=== PATIENT | female | born 1970 | race Caucasian/White ===

== ENCOUNTER 2016-10-22 12:24 | Day surgery (SDC) | payer MEDICAID ==
[~2016-10-22] VITALS: Ht 160 cm; Wt 85.9 kg
--- NOTE | ~2016-10-22 | OP ---
PATIENT NAME: ARACELI FELTON MEDICAL RECORD: [id number] :72 LOCATION:[facility] ADMISSION DATE: SURGEON: MANUEL GRAHAM DO DATE OF OPERATION: 10/22/2016 PROCEDURE: EGD. INDICATIONS: Dysphagia, epigastric abdominal pain, and heartburn. SCOPE: Olympus video gastroscope. MEDICATIONS: Propofol 200 mg IV per anesthesia. ESTIMATED BLOOD LOSS: None. COMPLICATIONS: None. FINDINGS: Informed consent was given. The patient was made comfortable with the above medications. After reaching an adequate level of sedation by slow IV push, the patient was placed on her left side. The endoscope was then advanced under direct visualization through the mouth to the second portion of the duodenum. The patient did not tolerate the procedure well and she has significant amount of secretions, which causes her to cough throughout the entire procedure. For this reason, the procedure was quick and difficult to adequately visualize all areas on this study. From what could be seen, the upper, middle, and distal thirds of the esophagus appeared normal. There was some mild, LA class A reflux induced esophagitis at the GE junction. When the scope was passed through the GE junction, it was evident that there was a large hiatal hernia present. It could be visualized sliding through the diaphragm. The scope was advanced with difficulty down the antrum and through the pylorus to the duodenum, where the bulb and second portion of the duodenum appeared normal. No biopsies were taken on this examination. The scope was withdrawn from the patient due to her poor respiratory status and intolerance to the procedure. There were no complications during this examination. IMPRESSION: 1. Reflux esophagitis grade A. 2. Large hiatal hernia. PLAN AND RECOMMENDATIONS: 1. Discharge home when recovery parameters are met. 2. Continue current medications. 3. Add omeprazole 40 mg daily times 30 days due to symptoms and evidence of reflux. 4. Discontinue smoking. 5. Barium esophagram regarding the dysphagia. 6. No further endoscopies due to intolerance to the procedure and poor respiratory status. 7. If PPI therapy help, this can be continued indefinitely at 20 mg daily or as needed. 8. Referral to surgery for hiatal hernia repair could be considered, but the patient is a poor surgical candidate due to her lung function. TRANSINT:[id number] Voice Confirmation ID: [id number] DOCUMENT ID: [id number] OPERATIVE REPORT [id number] ARACELI FELTON NATHAN A DO CC: [id number] DICTATION DATE: 10/22/16 1658 LEAD SOFTWARE TESTER: 10/23/16 0139 [facility] 10/22/16 [address] [place] [address]
[2016-10-22 13:07] LABS: HEMATOCRIT 46.7 % (36.0-48.0); HEMOGLOBIN 15.7 g/dL (12-16); MCH 30.9 pg (26.0-34.0); MCHC 33.6 g/dL (31.0-37.0); MCV 91.9 fL (80.0-100.0); MEAN PLATELET VOLUME 10.5 fL (7.4-10.4); RBC 5.08 10x6/uL (4.00-5.40); RDW 13.2 % (11.5-14.5); WBC 10.7 10x3/uL (4.8-10.8)
[2016-10-22] MEDS ORDERED: LATUDA40 MG PO (14:40)
[2016-10-22] MEDS ORDERED: COMBIVENT RESPIM4 GM INH (14:40)
[2016-10-22] MEDS ORDERED: IPRAT-ALBUT 0.5-3 ML UPD (14:41)
[2016-10-22] MEDS ORDERED: ULTRAM50 MG PO (14:41)
[2016-10-22] MEDS ORDERED: IMITREX50 MG PO (14:41)
[2016-10-22] MEDS ORDERED: KLONOPIN1 MG PO (14:42)
[2016-10-22] MEDS ORDERED: ADVAIR 250/501 DISK INH (14:42)
[2016-10-22] MEDS ORDERED: ADDERALL XR 3030 MG PO (14:42)
[2016-10-22] MEDS ORDERED: REQUIP0.5 MG PO (14:42)
[2016-10-22] MEDS ORDERED: MELOXICAM TAB 15M (14:43)
[2016-10-22] MEDS ORDERED: SPIRIVA18 MCG INH (14:43)
[2016-10-22 14:53] VITALS: BP 90/49; Ht 160 cm; Wt 85.9 kg
== END 2016-10-22 18:10 | disposition home or self-care (01) ==
LOC: D.OPS 12:24
PROVIDERS: Anesthesiology
DX: K21.0 Gastro-esophageal reflux disease with esophagitis (principal); K44.9 Diaphragmatic hernia without obstruction or gangrene; R12 Heartburn

== ENCOUNTER 2016-11-10 05:40 | Inpatient (IN) | payer MEDICAID ==
[2016-11-07 10:35] LABS: HEMOGLOBIN 15.2 g/dL (12-16); MCH 31.4 pg (26.0-34.0); MCHC 33.8 g/dL (31.0-37.0); MEAN PLATELET VOLUME 10.4 fL (7.4-10.4); RBC 4.84 10x6/uL (4.00-5.40); RDW 13.3 % (11.5-14.5); WBC 10.9 10x3/uL (4.8-10.8)
[2016-11-07 10:44] LABS: ANION GAP 10.8 mmol/L (8-16); CALCIUM 9.6 mg/dL (8.5-10.1); CARBON DIOXIDE 29.7 mmol/L (21.0-32.0); CREATININE - SERUM 0.9 mg/dL (0.6-1.3); POTASSIUM - SERUM 3.5 mmol/L (3.5-5.1)
[~2016-11-10] VITALS: Ht 160 cm; Wt 78.6 kg
[2016-11-10] VITALS (9 sets, daily range): BP systolic 97–126; BP diastolic 48–77; BMI 30.7
[~2016-11-10 05:40] MED LIST: ADDERALL XR 3030 MG PO; ADVAIR 250/501 DISK INH; COMBIVENT RESPIM4 GM INH; IMITREX50 MG PO; IPRAT-ALBUT 0.5-3 ML UPD; KLONOPIN1 MG PO; LATUDA40 MG PO; MELOXICAM TAB 15M PO; REQUIP0.5 MG PO; SPIRIVA18 MCG INH; ULTRAM50 MG PO
[2016-11-10 08:51] LABS: HCG URINE NEGATIVE (NEGATIVE)
--- NOTE | 2016-11-10 19:00 | NUR ---
PATIENT IN BED WATCHING TV. HOB 45 DEGREES. AAOX4. RR EVEN AND UNLABORED. O2 @ 10L VIA OXYMIZER. LAP SITES X6 TO ABD. LINGEY SECURED WITH STATLOCK AND DRAINING TO GRAVITY. SCD'S ON. SRX2. BED LOW. CALL LIGHT WITHIN REACH.
[2016-11-11] VITALS: BP 97/55
[2016-11-11 04:00] VITALS: BP 97/52
[2016-11-11 06:15] LABS: BASOPHILS 0.1 % (0-2); EOSINOPHILS 0 % (0-7); HEMATOCRIT 40.4 % (36.0-48.0); HEMOGLOBIN 13.2 g/dL (12-16); IMMATURE GRANULOCYTES 0.4 % (0-5); LYMPHOCYTES 6.5 % (15-50); MCH 30.6 pg (26.0-34.0); MCHC 32.7 g/dL (31.0-37.0); MCV 93.7 fL (80.0-100.0); MEAN PLATELET VOLUME 10.7 fL (7.4-10.4); MONOCYTES 3.5 % (2-11); NEUTROPHILS 89.5 % (40-80); RBC 4.31 10x6/uL (4.00-5.40); RDW 13.5 % (11.5-14.5); WBC 17.1 10x3/uL (4.8-10.8)
--- NOTE | 2016-11-11 06:24 | OP ---
PATIENT NAME: ISAC FELTON MEDICAL RECORD: [id number] :72 LOCATION:[id number] ADMISSION DATE:11/10/16 SURGEON: GREY SANTOYO MD DATE OF OPERATION: 11/10/2016 SURGEON: Grey Santoyo MD. PREOPERATIVE DIAGNOSES: 1. Gastroesophageal reflux disease with esophagitis. 2. Hiatal hernia. 3. Chronic obstructive pulmonary disease. 4. Obstructive sleep apnea. 5. Nicotine dependence. 6. Dysphagia. 7. Dependence on supplemental oxygen. POSTOPERATIVE DIAGNOSES: 1. Gastroesophageal reflux disease with esophagitis 2. Hiatal hernia. 3. Chronic obstructive pulmonary disease. 4. Obstructive sleep apnea. 5. Nicotine dependence. 6. Dysphagia. 7. Dependence on supplemental oxygen. SURGEON: Grey Santoyo MD. UNSTACKER SURGEON: Emmanuel German MD. PROCEDURES: 1. Laparoscopic hiatal hernia repair. 2. Laparoscopic Vika fundoplication. ANESTHESIA: General. COMPLICATIONS: None. SPECIMENS: None. Case was clean. ESTIMATED BLOOD LOSS: 40 cc. OPERATIVE COURSE: After consent was obtained, the patient was taken to the operating room and placed in the supine position on the operating table. Next, general anesthesia was given via endotracheal intubation after a timeout was performed that confirmed correct patient and procedure. The abdomen was then prepped and draped in typical sterile fashion. Local anesthetic was injected just above the umbilicus. Using a 10-mm bladeless optical trocar, the abdomen was entered under direct laparoscopic vision. Adequate pneumoperitoneum was achieved. The abdominal cavity was inspected, no evidence of bowel injury and no evidence of bleeding. The patient was placed in the steep reverse Trendelenburg position. At this time, all remaining trocars were placed, two 5-mm trocars in the right lower quadrant, 12 mm and 5-mm trocar in the left lateral quadrant, Marine liver retractor in the subxiphoid position. The OPERATIVE REPORT [id number] ISAC FELTON left lobe of the liver was elevated with the Marine Liver Retractor exposing the gastroesophageal junction. There was a hiatal hernia noted in the stomach. The upper portion of the stomach was within the mediastinum. Dissection continued laterally on the greater curve. The upper third of the stomach was mobilized, the short gastrics were taken along the upper third of the stomach and the cardia, all the way to the level of the left diaphragmatic crura. The left diaphragmatic crura was skeletonized. This all was performed with the Harmonic scalpel. Next, the gastrohepatic ligament was opened with Harmonic scalpel. Dissection continued to the level of the right crura. The right crura was skeletonized. Dissection continued posteriorly until the left previously dissected left crura was identified. Next, dissection continued anteriorly completing the circumferential dissection of the diaphragmatic hiatus as well as dissection and removal of the hernia sac. The mediastinum was dissected until approximately 4-6 cm of intraabdominal esophagus was obtained. The Jagruti was applied to the mediastinum. The diaphragmatic hernia was closed with 2-0 polypropylene Stratafix in a running continuous fashion. Next, a floppy Vika was created. The cardia of the stomach was passed posterior to the GE junction using a 3-0 spiral PDS. A loose floppy Vika was performed. At the end of the case, the abdomen was copiously irrigated and suctioned. Careful attention was paid to hemostasis. There was no evidence of bowel injury. No evidence of bleeding. At this time, the Marine liver retractor was removed. All remaining instruments were removed. The abdomen was desufflated. Trocars were removed. Skin was closed with 4-0 Monocryl, Mastisol and Steri-Strips. At the end the case, all needle and instrument counts were correct. No complications occurred. The patient was extubated and transferred to the PACU in stable condition. TRANSINT:[id number] Voice Confirmation ID: [id number] DOCUMENT ID: [id number] GREY SANTOYO MD at 0624 CC: [id number] DICTATION DATE: 11/10/16 1337 DOUGH MIXER: 11/10/16 1709 ADM [id number] [place] [address]
[2016-11-11 06:44] LABS: ANION GAP 13.8 mmol/L (8-16); CALCIUM 8.8 mg/dL (8.5-10.1); CARBON DIOXIDE 25.3 mmol/L (21.0-32.0); MAGNESIUM - SERUM 1.6 mg/dL (1.8-2.4); POTASSIUM - SERUM 4.1 mmol/L (3.5-5.1)
[2016-11-11 06:55] LABS: PLATELET COUNT 238 10x3/uL (130-400)
--- NOTE | 2016-11-11 07:05 | NUR ---
PT REC'D FROM [facility]. RESTING IN BED WATCHING TV. AAOX4. NO CURRENT COMPLAINTS OF PAIN. X6 LAP SITES TO ABD FREE OF REDNESS AND SWELLING. CDI. TRUJILLO CATHETER DRAINING CLEAR YELLOW URINE TO GRAVITY. PT TAKEN TO HAVE GASTROGRAFFIN TEST DONE. ESCORTED OUT VIA WC.
[2016-11-11 07:12] VITALS: Ht 160 cm; Wt 78.6 kg
[2016-11-11 08:34] VITALS: BP 103/47
[2016-11-11] MEDS ORDERED: HYDROCODON-ACE1 EAC7 PO (09:07)
[2016-11-11] MEDS ORDERED: ZOFRAN ODT4 MG/UDTAB PO (09:09)
--- NOTE | 2016-11-11 11:00 | NUR ---
PATIENT UP IN ROOM AT THIS TIME WITH NO PROBLEMS. IV INTACT. NO COMPLAINTS. CALL LIGHT WITHIN REACH.
--- NOTE | 2016-11-11 12:08 | NUR ---
DC INSTRUCTIONS REVIEWED WITH PT AT THIS TIME. NO QUESTIONS OR CONCERNS VOICED. IV TO R HAND DC'D WITH CATHETER INTACT. TRUJILLO CATHETER DC'D WITH BALLOON INTACT WELL. F/U APPOINTMENTS DISCUSSED. ESCORTED OUT VIA WC BY VOLUNTEER.
== END 2016-11-11 12:09 | disposition home or self-care (01) | DRG 327 ==
LOC: D.SDCHOLD 05:40 → D.MS 05:40 → D.OPS 07:30 → EDSTATUS 07:30 → D.SDCHOLD 07:30 → D.PAN 07:30 → D.SDCHOLD 08:45 → D.MS 14:05
PROVIDERS: Anesthesiology; ADMIT Surgery
PROC: 0BQR4ZZ (ICD-10-PCS; 2016-11-10)
PROC: 0DV44ZZ Restriction of Esophagogastric Junction, Percutaneous Endoscopic Approach (ICD-10-PCS; principal; 2016-11-10 08:45)
PROC: 0BQS4ZZ (ICD-10-PCS; 2016-11-10 08:45)
DX: K21.0 Gastro-esophageal reflux disease with esophagitis (principal); F17.203 Nicotine dependence unspecified, with withdrawal; K44.9 Diaphragmatic hernia without obstruction or gangrene; J44.9 Chronic obstructive pulmonary disease, unspecified; G47.33 Obstructive sleep apnea (adult) (pediatric); R13.10 Dysphagia, unspecified; Z99.81 Dependence on supplemental oxygen

== ENCOUNTER → 2016-12-04 07:47 | Outpatient (CLI) | payer MEDICAID ==
[2016-11-11 07:12] VITALS: BMI 30.7
[~2016-12-04 07:47] MED LIST changes: +HYDROCODON-ACE1 EAC7 PO; +ZOFRAN ODT4 MG/UDTAB PO
[2016-12-04 08:19] LABS: BASOPHILS 0.2 % (0-2); EOSINOPHILS 0 % (0-7); HEMATOCRIT 43.9 % (36.0-48.0); HEMOGLOBIN 14.6 g/dL (12-16); IMMATURE GRANULOCYTES 0.5 % (0-5); LYMPHOCYTES 18.6 % (15-50); MCH 30.9 pg (26.0-34.0); MCHC 33.3 g/dL (31.0-37.0); MONOCYTES 5.8 % (2-11); NEUTROPHILS 74.9 % (40-80); PLATELET COUNT 249 10x3/uL (130-400); RBC 4.72 10x6/uL (4.00-5.40); RDW 13.5 % (11.5-14.5); WBC 10.7 10x3/uL (4.8-10.8)
[2016-12-04 08:44] LABS: ANION GAP 12.1 mmol/L (8-16); CARBON DIOXIDE 27.8 mmol/L (21.0-32.0); CREATININE - SERUM 0.9 mg/dL (0.6-1.3); POTASSIUM - SERUM 3.9 mmol/L (3.5-5.1)
== END | disposition home or self-care (01) ==
LOC: D.LAB 07:47 → D.RAD 09:30
PROVIDERS: Surgery
DX: R10.9 Unspecified abdominal pain (principal); R11.10 Vomiting, unspecified

== ENCOUNTER → 2018-06-15 07:45 | Outpatient (CLI) | payer MEDICAID ==
[2016-11-11 07:12] VITALS: BMI 30.7
--- NOTE | 2018-06-18 12:11 | ST ---
PATIENT:ISAC FELTON MEDICAL RECORD: [id number] SEX: F LOCATION:[facility] ORDER #: ADMISSION DATE: 06/15/18 AGE OF PATIENT: 48 REFERRING PHYSICIAN: INTERPRETING PHYSICIAN: FELIICANO ZIMMER MD DATE OF SERVICE: 06/15/2018 PROCEDURE: Nuclear Stress Test. INDICATION: Chest discomfort, angina, hypertension, family history of coronary artery disease. She was exercised on standard Lexiscan protocol with 30 mCi of sestamibi injected at peak stress, 11 mCi were used previously for rest images. FINDINGS: Gated SPECT reveals a mildly depressed ejection fraction at 47%. SPECT IMAGING: Cardiolite was used as myocardial perfusion agent. There is reversibility inferiorly and apically. This includes the basal, mid, apical segments as well as the apex itself. The degree of reversibility is mild. The amount of myocardium involved is moderate. OVERALL IMPRESSION: 1. This is an abnormal nuclear stress test, moderate amount of myocardium showing reversibility inferoapically. 2. Gated SPECT reveals a mildly depressed ejection fraction of 47%. In this patient with ongoing symptomatology, the current scan does suggest the presence of hemodynamically significant coronary artery disease. We will proceed with coronary angiography as followup study. TRANSINT:[id number] Voice Confirmation ID: [id number] DOCUMENT ID: [id number] FELICIANO ZIMMER MD at 1211 CC: [id number] DICTATION DATE: 06/16/18 1152 ADMINISTRATIVE VOLUNTEER: 06/17/18 0803 DEP CLI 06/15/[address] [address]
== END | disposition home or self-care (01) ==
LOC: D.HCCARDIO 07:45
DX: I20.9 Angina pectoris, unspecified (principal)

== ENCOUNTER 2018-06-28 10:42 | Outpatient (CLI) | payer MEDICAID ==
[~2018-06-28] VITALS: Ht 160 cm; Wt 92.7 kg
--- NOTE | ~2018-06-28 | HEMODYNAMI ---
PATIENT:ISAC FELTON MEDICAL RECORD: [id number] : 72 LOCATION:[place] ADMISSION DATE: 06/28/18 Generatedon:06/28/201813:27 Patient name: ISAC FELTON Patient #: [id number] SSN: B: 1970 Date of study: 06/28/2018 Page: Of Hemodynamic Procedure Report Patient Data Patient Demographics Procedure consent was obtained First Name: ISAC Gender: Female Last Name: JOSE FRANCISCO : 1970 Middle Initial: RILEY Age: 48 year(s) Patient #: [id number] Race: Unknown Additional ID: [id number] Contact details Address: [address] [address] State: [place] City: [place] Zip code: [address] Past Medical History Allergies Allergen Reaction Date Comments Reported Bactrim 06/28/2018 Admission Admission Data Admission Date: 06/28/2018 Admission Time: 10:42 Height (in.): 63 BSA: 1.95 (m2) Height (cm.): 160.02 BMI: 35.96 (kg/m2) Weight (lbs.): 203 Weight (kg.): 92.08 Lab Results Lab Result Date: 06/28/2018 Lab Result Time: 0:00 Biochemistry Name Units Result Min Max BUN mg/dl 8 --(*---)-- 7 18 Creatinine mg/dl 0.7 --(*---)-- 0.6 1.3 CBC Name Units Result Min Max Hemoglobin g/dl 17.9 --(----)*- 13.5 17.5 Procedure Procedure Types Cath Procedure Diagnostic Procedure C [facility] w/Coronaries Sedation Charges Moderate Sedation up to 15 minutes Procedure Description Procedure Date Procedure Date: 06/28/2018 Procedure Start Time: 13:06 Procedure End Time: 13:22 Procedure Staff Name Function Tal Castro MD Performing Physician Karlie Marie RT Monitor Yesenia Marquez RT Scrub Burt Purdy RT Scrub Krystyna Esquivel RN Nurse Procedure Data Cath Procedure Fluoroscopy Diagnostic fluoroscopy Total fluoroscopy Time: 1.4 time: 1.4 min min Diagnostic fluoroscopy Total fluoroscopy dose: 303 dose: 303 mGy mGy Contrast Material Contrast Material Type Amount (ml) Isovue 300 59 Entry Location Entry Primary Successful Side Size Upsize Upsize Entry Closure Succes sful Closure Location (Fr) 1 (Fr) 2 (Fr) Remarks Device Remarks Femoral Right 5 Fr Exoseal artery Estimated blood loss: 5 ml Diagnostic catheters Device Type Used For End Catheter Placement MULTIPACK JL 4.0 5Fr Procedure catheter MULTIPACK 3DRC 5Fr Procedure catheter MULTIPACK Pigtail 5 Fr Procedure catheter Procedure Complications No complications Procedure Medications Medication Administration Route Dosage 0.9% NaCl I.V. 100 ml/hr Oxygen etCO2 Nasal cannula 2 l/min Lidocaine 2% added to field 20 Heparin Flush Bag added to field 2 bags (1000units/500ml NS) Versed I.V. 2 mg Fentanyl I.V. 50 mcg Versed I.V. 2 mg Fentanyl I.V. 50 mcg Versed I.V. 2 mg Fentanyl I.V. 50 mcg Hemodynamics Rest BSA: 1.95 (m2) HGB: 17.9 (g/dl) O2 Consumption: Estimated: 197.57 (ml/min) O2 Co nsumption indexed: Estimated:101.32 (ml/min/m) Heart Rate: 76 (bpm) Pressure Samples Time Site Value (mmHg) Purpose Heart Use Rate(bpm) 13:18 LV 114/7,12 Snapshot 77 13:19 AO 125/62(94) Pullback 84 13:19 LV 127/15,37 Pullback 84 Gradients Valve Time Site 1 Site 2 Mean SEP/DFP Peak To Heart Use (mmHg) (sec/min) Peak Rate (mmHg) (bpm) Aortic 13:19 LV AO 22 19 2 84 127/15,37 125/62(94) Calculations Valve P-P Mean Valve Index Valve Source Name Gradient Area Flow (cm2) Aortic 2 22 2 22 Snapshots Pre Cath Intra NCS Post Cath Vital Signs Time Heart Resp SPO2 etCO2 NIBP (mmHg) Rhythm Pain Sedation Rate (ipm) (%) (mmHg) Status Level (bpm) 12:40:09 86 20 96 34 133/70(103) NSR 0 (11) 10(A) , No pain 12:44:30 77 20 97 39 130/75(114) NSR 0 (11) 10(A) , No pain 12:48:41 77 26 98 34.2 118/79(99) NSR 0 (11) 10(A) , No pain 12:52:57 80 36 97 33.5 118/71(91) NSR 0 (11) 10(A) , No pain 12:57:09 83 30 97 32 109/75(97) NSR 0 (11) 10(A) , No pain 13:01:13 87 15 98 34.9 108/72(94) NSR 0 (11) 10(A) , No pain 13:05:25 86 21 97 26 111/72(91) NSR 0 (11) 10(A) , No pain 13:09:37 87 21 98 31.2 114/75(91) NSR 0 (11) 10(A) , No pain 13:13:49 85 30 98 30.4 110/80(98) NSR 0 (11) 9(A) , No pain 13:18:01 86 32 96 29.7 117/77(98) NSR 0 (11) 9(A) , No pain 13:22:13 86 30 96 30.5 121/80(99) NSR 0 (11) 10(A) , No pain Medications Time Medication Route Dose Verified Delivered Reason Notes Eff ectiveness by by 12:39:18 0.9% NaCl I.V. 100 Tal Krystyna used for ml/hr Gloria Alvin procedure MD GONZALEZ 12:39:24 Oxygen etCO2 2 Tal Krystyna used for [facility]al l[facility] MD GOZNALEZ 12:39:38 Lidocaine 2% added 20ml Tal Parada for local to vial [facility] anesthetic field MD MARQUEZ 12:39:42 Heparin Flush added 2 Tal Tal [facility] ([facility]500[facility] field MD MARQUEZ NS) 13:00:13 Versed I.V. 2 mg Tal Krystyna for Gloria Alvin sedation MD GONZALEZ 13:00:18 Fentanyl I.V. 50 Tal Krystyna for mcg [place] Alvin sedation MD GONZALEZ 13:05:17 Versed I.V. 2 mg Tal Krystyna for GloriaHans Esquivel sedation MD GONZALEZ 13:05:26 Fentanyl I.V. 50 Tal Krystyna for mcg Gloria Alvin sedation MD GONZALEZ 13:12:33 Versed I.V. 2 mg Tal [place] sedation MD GONZALEZ 13:12:38 Fentanyl I.V. 50 Tal eisenberg [facility] Hans Esquivel sedation MD GONZALEZspice mixer Log Time Note 12:23:45 Signed procedure consent form obtained from patient. 12:23:50 Diagnostic Cath status Elective 12:23:54 Krystyna Esquivel RN sent for patient. Start room use. 12:24:42 Patient Height : 63 inches 12:24:51 Patient Weight : 203 lbs 12:25:00 H&P Date Dictated: 06/07/2018 Within 30 days and on chart., H&P Addendum completed by physician on day of procedure. (MUST COMPLETE FOR ALL OUTPATIENTS). 12:25:06 Patient allergic to Bactrim 12:35:17 Patient received from Pre/Post Procedure Room to CCL 1 Alert and oriented. Tansferred to table in Supine position. 12:35:18 Warm blankets applied, and mckenzie hugger turned on for patient comfort. 12:35:18 Correct patient and procedure confirmed by team. 12:35:19 ECG and BP/O2 sat monitors applied to patient. 12:38:53 Vital chart was started 12:39:18 0.9% NaCl 100 ml/hr I.V. was administered by Krystyna Esquivel RN; used for procedure; 12:39:24 Oxygen 2 l/min etCO2 Nasal cannula was administered by Krystyna Esquivel RN; used for procedure; 12:39:38 Lidocaine 2% 20ml vial added to field was administered by Tal Castro MD; for local anesthetic; 12:39:42 Heparin Flush Bag (1000units/500ml NS) 2 bags added to field was administered by Tal Castro MD; used for procedure; 12:41:46 Baseline sample Acquired. 12:41:52 Rhythm: sinus rhythm 12:41:54 Pre-procedure instructions explained to patient. 12:41:55 Pre-op teaching completed and patient verbalized understanding. 12:41:57 Family in waiting room. 12:41:58 Patient NPO since Midnight. 12:42:00 Is the patient allergic to Iodine/contrast media? No. 12:42:01 Was the patient premedicated? No 12:46:16 Full Disclosure recording started 12:46:21 Is patient on blood thinner?No 12:46:25 Patient diabetic? No. 12:46:28 Patient not . Patient has had tubal. 12:46:30 Previous problem with sedation/anesthesia? No ? 12:46:31 Snore? Yes 12:46:32 Sleep apnea? Yes 12:46:33 Deviated septum? No 12:46:33 Opens mouth fully? Yes 12:46:34 Sticks out tongue? Yes 12:46:37 Airway obstruction? Yes COPD 12:46:40 Dentures? No ? 12:46:41 Modified Abhishek's test Ulnar < 7 seconds 12:46:44 Patient pain scale 0/10 ?. 12:46:50 IV patent on arrival in left hand with 0.9% NaCl at [facility]. 12:47:15 Lab Result : Creatinine 0.7 mg/dl 12:47:15 Lab Result : BUN 8 mg/dl 12:47:15 Lab Result : Hemoglobin 17.9 g/dl 12:47:21 Lab results completed and on chart. 12:47:26 Right Radial & Right Groin area was prepped with chlora-prep and draped in sterile fashion 12:47:27 Alarms reviewed by R. N. 12:47:27 Sharps counted by scrub and verified by R.N. 12:47:30 Use device set Radial Dx or PCI 12:47:31 ACIST Syringe (30058) opened to sterile field. 12:47:32 Medline Cath Pack ([id number]) opened to sterile field. 12:47:33 Bag Decanter (2002) opened to sterile field. 12:47:35 ACIST Hand Control (80312) opened to sterile field. 12:47:35 ACIST Manifold (68183) opened to sterile field. 12:47:36 Tegaderm 4 x 4 (1626W) opened to sterile field. 12:47:37 DIAGNOSTIC WIRE .035 260cm J wire (034619) opened to sterile field. 12:47:38 MBrace Wrist Support ([id number]) opened to sterile field. 12:47:39 SHEATH 6FR Slender (91-2686) opened to sterile field. 12:59:22 --------ALL STOP TIME OUT------ 12:59:22 Final Timeout: patient, procedure, and site verified with staff and physician. All members of the team are in agreement. 12:59:24 Right Radial & Right Groin site verified by team. 12:59:31 Fire Safety Assessment: A--An alcohol-based skin anteseptic being used preoperatively., C--Open oxygen or nitrous oxide is being used., D--An ESU, laser, or fiber-optic light is being used. 12:59:34 Physical assessment completed. ASA score P 2 - A patient with mild systemic disease as per Tal Castro MD. 12:59:37 Sedation plan: IV Moderate Sedation Medication:Versed, Fentanyl 12:59:40 Zero performed for pressure channel P1 13:00:13 Versed 2 mg I.V. was administered by Krystyna Esquivel RN; for sedation; 13:00:18 Fentanyl 50 mcg I.V. was administered by Krystyna Esquivel RN; for sedation; 13:05:17 Versed 2 mg I.V. was administered by Krystyna Esquivel RN; for sedation; 13:05:26 Fentanyl 50 mcg I.V. was administered by Krystyna Esquivel RN; for sedation; 13:05:54 Procedure started. 13:06:22 Local anesthetic to right radial artery with Lidocaine 2% by Tal Castro MD.INITIAL ACCESS ONLY 13:10:56 NO RADIAL CANNULATION. WILL GO FEMORAL 13:11:28 SHEATH 5FR [place] ([id number]) opened to sterile field. 13:11:47 Use device set Multipack Set 13:11:49 DIAGNOSTIC Multipack 5Fr catheter set ([id number]) opened to sterile field. 13:12:01 Local anesthetic to left femerol artery with Lidocaine 2% by Tal Castro MD.ADDITIONAL ACCESS 13:12:33 Versed 2 mg I.V. was administered by Krystyna Esquivel RN; for sedation; 13:12:38 Fentanyl 50 mcg I.V. was administered by Krystyna Esquivel RN; for sedation; 13:12:52 A 5 Fr sheath was inserted into the Right Femoral artery 13:13:01 A MULTIPACK JL 4.0 5Fr catheter was advanced over the wire and used for Procedure. 13:15:16 LCA angiography performed. 13:15:38 Catheter removed. 13:15:59 A MULTIPACK 3DRC 5Fr catheter was advanced over the wire and used for Procedure. 13:17:02 RCA angiography performed. 13:17:03 Catheter removed. 13:17:12 A MULTIPACK Pigtail 5 Fr catheter was advanced over the wire and used for Procedure. 13:18:23 LV gram done using FELDER 13:18:30 Injector settings: Ml/sec: 7, Volume: 15, 13:18:51 LV hemodynamics recorded. 13:19:17 EF : 55 % 13:19:19 Catheter removed. 13:19:53 EXOSEAL 5Fr (EX500) opened to sterile field. 13:20:15 Sheath removed intact; hemostasis achieved with Exoseal to the Right Femoral artery. 13:20:18 Procedure ended.(Physican Out) 13:20:34 Fluoroscopy time 01.40 minutes. 13:20:38 Fluoroscopy dose: 303 mGy 13:20:38 Flurop Dose total: 303 13:20:43 Contrast amount:Isovue 300 59ml. 13:20:44 Sharps counted by scrub and verified by R.N. 13:21:01 Post-op/insertion site Right Femoral artery dressed using a 4 x 4 and Tegaderm. 13:21:05 Post-procedure physical assessment completed. ASA score P 2 - A patient with mild systemic disease as per Tal Castro MD. 13:21:16 Post procedure rhythm: sinus rhythm 13:21:19 Estimated blood loss: 5 ml 13:21:23 Post procedure instruction explained to patient.Patient verbalizes understanding. 13:21:23 Patient needs reinforcement of post procedure teaching. 13:21:51 Procedure type changed to Cath procedure, Diagnostic procedure, LHC, LHC w/Coronaries, Sedation Charges, Moderate Sedation up to 15 minutes 13:22:17 Procedure and supply charges have been captured, reviewed, submitted and are correct. 13:22:19 Procedure Complication : No complications 13:22:21 Vital chart was stopped 13:22:21 See physician's report for complete and final results. 13:22:23 Report given to Pre/Post Procedure Room. 13:22:25 Patient transfered to Pre/Post Procedure Room with Wheelchair. 13:22:27 Procedure ended. 13:22:27 Full Disclosure recording stopped 13:22:30 End room use (Document Last) Device Usage Item Name Manufacture Quantity Catalog Hospital Part Current Minimal Lot# / Number Charge Number Stock Stock Serial# Code ACIST Acist 1 08267 [id number] 428087 301328 20 Syringe Medical (48359) Systems Inc Medline Medline 1 [id number] 832600 33439 896974 5 Cath Pack ([id number]) Bag Microtek 1 2001S 435030 00734 615240 5 Decanter Medical Inc. () ACIST Hand Acist 1 77508 271517 505039 496184 5 Control Medical (83252) Systems Inc ACIST Acist 1 73738 246544 632042 482121 5 Manifold Medical (80924) Systems Inc Tegaderm 4 3M 1 1626W 753745 769069 541348 5 x 4 (1626W) DIAGNOSTIC St Aden 1 518063 075472 146785 584345 30 WIRE .035 260cm J wire (824768) MBrace Advanced 1 140-0250-00 127708 19568 090145 5 Wrist Vascular Support Dynamics ([id number]) SHEATH 6FR Terumo 1 [id number] 200530 616385 963250 5 Slender (80-1060) SHEATH 5FR Terumo 1 [id number] 899064 633640 231561 5 [place] (MNX282) DIAGNOSTIC Cardinal 1 [id number] 484441 59307 423174 30 Multipack Health 5Fr catheter set (NV2412) MULTIPACK Cardinal 1 064888 5 JL 4.0 5Fr Health catheter MULTIPACK Cardinal 1 337962 5 3DRC 5Fr Health catheter MULTIPACK Cardinal 1 755998 5 Pigtail 5 Health Fr catheter EXOSEAL 5Fr Cardinal 1 EX500 796686 411872 467237 10 (EX500) Health Signature Audit [place] Stage Time Signature Unsigned Intra-Procedure 06/28/2018 Karlie Marie 1:27:11 PM RT(R) Signatures Monitor : Karlie Marie Signature : RT Date : Time : [facility] [address] [place] [address]
[2018-06-28] MEDS ORDERED: KLONOPIN1 MG PO (10:59)
[2018-06-28] MEDS ORDERED: REQUIP0.5 MG PO (11:01)
[2018-06-28] MEDS ORDERED: LUNESTA2 M1 PO (11:02)
[2018-06-28] MEDS ORDERED: VOLTAREN75 MG PO (11:02)
[2018-06-28] MEDS ORDERED: OMEPRAZOLE20 M1 PO (11:02)
[2018-06-28 11:11] VITALS: BP 115/67; Ht 160 cm; Wt 92.7 kg
[2018-06-28 11:25] LABS: BASOPHILS 0.2 % (0-2); EOSINOPHILS 0.6 % (0-7); HEMATOCRIT 43.6 % (36.0-48.0); HEMOGLOBIN 14.9 g/dL (12-16); IMMATURE GRANULOCYTES 0.4 % (0-5); LYMPHOCYTES 22.3 % (15-50); MCH 30.6 pg (26.0-34.0); MCHC 34.2 g/dL (31.0-37.0); MCV 89.5 fL (80.0-100.0); NEUTROPHILS 73.5 % (40-80); PLATELET COUNT 238 10x3/uL (130-400); RBC 4.87 10x6/uL (4.00-5.40); RDW 13.4 % (11.5-14.5); WBC 11.3 10x3/uL (4.8-10.8)
[2018-06-28 11:34] LABS: CALC OSMOLALITY 273 mosm/kg (275-300); CALCIUM 8.9 mg/dL (8.5-10.1); CARBON DIOXIDE 22.8 mmol/L (21.0-32.0); CHLORIDE - SERUM 105 mmol/L (98-107); CREATININE - SERUM 0.7 mg/dL (0.6-1.3); GLUCOSE 93 mg/dL (74-106); POTASSIUM - SERUM 4.7 mmol/L (3.5-5.1); SODIUM 138 mmol/L (136-145); UREA NITROGEN 8 mg/dL (7-18); eGFR NON AFRICAN AMERICAN > 90 mL/min (90-120)
--- NOTE | 2018-06-28 13:45 | NUR ---
1335 RECEIVED PT FROM FORESTRY LABORER. PT IS DROWSY BUT AWAKENS EASILY. DENIES ANY C/O PAIN OR NAUSEA. 5 FR EXOSEAL IS CDI TO RIGHT GROIN, AREA IS SOFT AND NONTENDER. PEDAL PULSES PALPABLE, HOB IS FLAT, CALL LIGHT IN REACH, NO FAMILY AT BEDSIDE. 1345 NO BLEEDING OR HEMATOMA NOTED AT RIGHT GROIN DRESSING SITE. PEDAL PULSES PALPABLE. PT WITH OCCASIONAL COUGH, INSTRUCTED HER TO HOLD PRESSURE TO CATH SITE WHEN SHE FEELS A COUGH COMING ON AND PT VERBALIZES UNDERSTANDING. SHE STATES A 'SMOKER'S COUGH'. SODA SERVED PER PT REQUEST. AT BEDSIDE. CALL LIGHT IN REACH. NSR, RATE IS 76.
--- NOTE | 2018-06-28 14:04 | NUR ---
PT ANA PO PO FLUIDS WITH NO C/O NAUSEA. DRESSING CDI, PULSES PALPABLE. VSS.
--- NOTE | 2018-06-28 14:32 | NUR ---
PT ALERT AND DENIES ANY C/O. DR CHAU HAS ROUNDED ON PT. PT HAS ANA PO FLUIDS WITH NO C/O. NAUSEA. BP IS 110/66, HR IS 76. DRESSING TO RIGHT GROIN IS CDI, PULSES PALPABLE. HOB IS FLAT, FRIEND AT BEDSIDE.
--- NOTE | 2018-06-28 14:50 | NUR ---
DRESSING REMAINS CDI TO RIGHT GROIN, AREA IS SOFT AND NONTENDER. PEDAL PULSES PALPABLE. PT IS ALERT AND DENIES ANY C/O. VSS. HOB ELEVATED AND SANDWICH SERVED.
--- NOTE | 2018-06-28 15:15 | NUR ---
DRESSING REMAINS CDI TO RIGHT GROIN, AERA IS SOFT AND NONTENDER. PEDAL PULSES PALPABLE. PT IS ALERT AND DENIES ANY C/O. VSS. DC INSTRUCTIONS REVIEWED WITH PT AND FRIEND WHO VERBALIZE UNDERSTANDING.
--- NOTE | 2018-06-28 15:28 | NUR ---
IV DC'D WITH CATH INTACT. DRESSING REMAINS CDI, PEDAL PULSES PALPABLE. PT IS ALERT AND DENIES ANY C/O. PT DRESSING FOR DC WITH ASSIST.
--- NOTE | 2018-06-28 15:41 | NUR ---
PT HAS AMBULTED TO THE BATHROOM AND VOIDED QS. IS ALERT AND DENIES ANY C/O. PT ESCORTED TO PRIVATE AUTO VIA WC BY NURSE WITH FRIEND DRIVING HER HOME.
--- NOTE | 2018-07-01 09:01 | OP ---
PATIENT NAME: ISAC FELTON MEDICAL RECORD: [id number] :72 LOCATION:[place] ADMISSION DATE: SURGEON: RUFINO CHAU MD DATE OF OPERATION: 06/28/2018 PROCEDURE: Left heart catheterization, selective coronary angiography, right femoral artery approach. CATHETERS: A 5-Azeri sheath, 5/4 left and right Shelia, 5/4 pig. The procedure was well tolerated. The patient was returned to the [place]. Sheath was removed. ExoSeal device was placed. FINDINGS: Left ventriculography in 30-degree FELDER view: Normal wall motion and normal systolic function. CORONARY ANATOMY: LEFT MAIN: Left main is free of disease. LAD: Free of disease in the diagonal system. CIRCUMFLEX: Free of disease in the marginal system. RIGHT CORONARY ARTERY: Dominant artery, gives rise to PDA, free of disease. IMPRESSION: Normal LV systolic function. Normal coronary anatomy. TRANSINT:[id number] Voice Confirmation ID: [id number] DOCUMENT ID: [id number] RUFINO CHAU MD at 0901 CC: [id number] DICTATION DATE: 06/28/18 1329 MAINTENANCE MACHINE REPAIRER: 06/28/18 1404 DEP CLI 06/28/18 [address] [place] [address]
== END 2018-06-28 15:40 | disposition home or self-care (01) ==
LOC: D.CATH 10:42
PROVIDERS: Internal Medicine Interventional Cardiology
DX: I20.0 Unstable angina (principal); R94.30 Abnormal result of cardiovascular function study, unspecified; Z01.812 Encounter for preprocedural laboratory examination

== ENCOUNTER → 2020-10-29 08:17 | Outpatient (CLI) | payer BC ==
[2018-06-28 11:11] VITALS: BMI 36.2
[~2020-10-29 08:17] MED LIST changes: +LUNESTA2 M1 PO; +OMEPRAZOLE20 M1 PO; +VOLTAREN75 MG PO
--- NOTE | 2020-10-30 14:32 | EC ---
PATIENT:ISAC FELTON DATE OF SERVICE: 10/29/20 SEX: F MEDICAL RECORD: [id number] DATE OF : 72 [facility] 50 ADMISSION DATE: 10/29/20 REFERRING PHYSICIAN: INTERPRETING PHYSICIAN: RUFINO CHAU MD ECHOCARDIOGRAM REPORT ECHO CHARGES 4 ECHO COMPLETE Date: 10/29/20 CLINICAL DIAGNOSIS: HEART MURMUR ECHOCARDIOGRAPHIC MEASUREMENTS (adult normal given) AC root (d.<3.7cm) 3.0 cm LV Septum d (<1.2 cm> 1.3 cm Valve Excursion 1.4 cm LV Septum (systole) 1.5 cm Left Atria (s.<4.0cm> 3.2 cm LVPW d(<1.2cm) 1.5 cm RV (d.<2.3cm) 3.4 cm LVPW (sytole) 1.7 cm LV diastole(<5.6CM) 4.2 cm MV E-F(>70mm/sec) cm LV systole 3.0 cm LVOT Diameter 2.0 cm MV exc.(>10mm) 1.5 cm Est.ejection fraction (50-75%) % DOPPLER: LVIT cm/sec A 69.0 cm/sec E 83.0 cm/sec LA cm/sec RVSP 18 mmHg LVOT 89 cm/sec AOP1/2T m/s Asc. Ao 125 cm/sec RVOT 78 cm/sec RA cm/sec PA 110 cm/sec AV Gradient Peak 6.21 mmHg AV Mean 3.52 mmHg AV Area 2.4 cm MV Gradient Peak 3.41 mmHg MV Mean 1.63 mmHg MV Area cm COMMENTS: Director Of Curriculum: 2 JEANNETTE CHOE Dusting And Brushing Machine Operator: 3 Dr. Wilhelm TAPE# PACS Pericardial Effusion N DATE OF SERVICE: Adequate 2D, color flow imaging, spectral Doppler, and M-mode. FINDINGS: Mild LVH. LV internal dimensions normal. Wall motion is normal. EF is greater than or equal to 55%. Aortic valve is sclerotic. No evidence of stenosis by Doppler interrogation. Left atrium is normal at 3.2 cm. Mitral valve shows no prolapse. Trace MR. Right-sided chambers are grossly normal. Trace TR. ECHOCARDIOGRAM REPORT [id number] ISAC FELTON TRANSINT:[id number] Voice Confirmation ID: [id number] DOCUMENT ID: [id number] RUFINO CHAU MD at 1432 CC: [id number] DICTATION DATE: 10/29/20 163 ACTING PROFESSOR: 10/29/202202 DEP CLI 10/29/20 [id number] [place] [id number]
--- NOTE | 2020-10-30 14:32 | ST ---
PATIENT:ISAC FELTON MEDICAL RECORD: [id number] SEX: F LOCATION:[facility] ORDER #: ADMISSION DATE: 10/29/20 AGE OF PATIENT: 50 REFERRING PHYSICIAN: INTERPRETING PHYSICIAN: RUFINO CHAU MD DATE OF SERVICE: 10/29/2020 NUCLEAR STRESS TEST. FINDINGS: 1. Gated is normal. Normal wall motion, EF 78%. 2. SPECT imaging in short axis view shows good uptake along the anterior wall, lateral and inferior wall. 3. Horizontal axis: Horizontal axis confirms good uptake along the anterior wall and inferior wall. 4. Vertical axis: Vertical axis shows good uptake along lateral wall and septum. FINAL IMPRESSION: 1. Normal gated, normal wall motion, EF 78%. 2. Normal SPECT imaging. FINAL RECOMMENDATION: The scan is felt low risk for any significant myocardial ischemia or previous myocardial infarction. LV function remains normal. Continued risk factor modification is recommended. TRANSINT:[id number] Voice Confirmation ID: [id number] DOCUMENT ID: [id number] RUFINO CHAU MD at 1432 CC: [id number] DICTATION DATE: 10/29/20 1624 [facility] DIRECTOR: 10/30/20 0507 DEP CLI 10/29/20 [facility] [address] [place] [address]
== END | disposition home or self-care (01) ==
LOC: D.HCCARDIO 08:17 → D.HCCECHO 09:30
PROVIDERS: ATTEND Internal Medicine Interventional Cardiology
DX: I20.9 Angina pectoris, unspecified (principal)